=== PATIENT | male | born 1965 | race Hispanic/Latino ===

== ENCOUNTER → 2017-04-27 | Outpatient (CLI) | payer OTHER | LOC: RAH 09:27 | PROVIDERS: ATTEND Internal Medicine | DX: Z01.818 Encounter for other preprocedural examination (principal); M47.895 Other spondylosis, thoracolumbar region | CPT/HCPCS: 71046 ==

== ENCOUNTER → 2018-09-05 | Outpatient (CLI) | payer OTHER ==
--- NOTE | 2018-09-05 11:27 | NUR ---
MBSS COMPLETED. MILD PHARYNGEAL DYSPHAGIA. RECOMMEND REGULAR, THIN LIQUIDS; PILLS WHOLE WITH LIQUIDS; ADD GRAVY TO MEATS, NO DRY TEXTURES, ALTERNATE BITES AND SIPS. PATIENT INFORMATION: Pt IS A 52 YEAR OLD MALE REFERRED FOR AN MBSS SECONDARY TO CHOKING EPISODE. Pt REPORTS THAT HE HAS HAD NECK SURGERY IN THE PAST AND HAD NEVER HAD ISSUES SWALLOWING. Pt STATES THAT IN THE LAST MONTH HE HAS BEEN EXHIBITING CHOKING WHEN EATING MEATS AND SOLIDS. Pt STATES THAT HE FEELS FOOD GET STUCK IN THE BACK OF HIS THROAT. Pt HAS A PAST MEDICAL HISTORY SIGNIFICANT FOR DM, C-SPINE FUSION ANTERIORLY AT C5-C7 (2015) AND POSTERIORLY AT C1-C7 (JULY 2017) WITH INSTRUMENTATION IN PLACE AT THIS TIME. MBSS INTERPRETATION: Pt PRESENTS WITH MILD PHARYNGEAL DYSPHAGIA CAUSED BY NARROWING IN THE POSTERIOR WALL/THICKENING OF TISSUE IN REFERENCE TO C5-C6 (Pt WITH INSTRUMENTATION AT C1-C7 POSTERIORLY AND C5-C7 ANTERIORLY), DECREASED PRESSURE GENERATION WITHIN THE PHARYNX, EVIDENCED BY RESIDUE IN POSTERIOR PHARYNGEAL WALL AND PYRIFORM SINUS AFTER THE SWALLOW (CLEARED WITH LIQUID WASH). NO PENETRATION OR ASPIRATION PRESENT AT THE TIME OF THE MBSS. PLEASE NOTE INCREASE RESIDUE EVIDENT WITH COOKIE TRIAL. TRIALS: 1. TSP PUREED: RESIDUE IN POSTERIOR PHARYNGEAL WALL 2. TSP PUDDING: RESIDUE IN POSTERIOR PHARYNGEAL WALL (CLEARED WITH LIQUID WASH) 3. CUP SIP THIN LIQUIDS: GOOD 4. MIXED TEXTURE: GOOD 5. COOKIE: RESIDUE IN POSTERIOR PHARYNGEAL WALL 6. CUP SIP THIN LIQUIDS: GOOD 7. STRAW SIP THIN LIQUIDS: GOOD RECOMMENDATIONS: 1. REGULAR, THIN LIQUIDS; PILLS WHOLE WITH LIQUIDS. 2. COMPENSATORY STRATEGIES: *SEATED AT 90 *ALTERNATE BITES AND SIPS *ADD GRAVY TO MEATS *SMALL BITES AND SIPS *AVOID DRY FOODS: BREAD, COOKIE, ETC RESULTS AND RECOMMENDATIONS PROVIDED VIA VERBAL AND WRITTEN MODALITY. Pt VERBALIZED UNDERSTANDING AND COMPLIANCE WITH RECOMMENDATIONS. G-CODES SWALLOWING: [id number] Addendum: 09/05/18 at 1143 by SHY HOLLY, SPT ST Amended: Links added.
== END | disposition home or self-care (01) ==
LOC: RAH 10:21
PROVIDERS: ATTEND Internal Medicine
DX: R13.13 Dysphagia, pharyngeal phase (principal); R13.0 Aphagia; R63.3 Feeding difficulties
CPT/HCPCS: 74230; 92611; G8996; G8997; G8998

== ENCOUNTER → 2019-05-28 | Outpatient (CLI) | payer OTHER | END | disposition home or self-care (01) | LOC: RAH 12:13 | PROVIDERS: ATTEND Internal Medicine | DX: I70.203 Unspecified atherosclerosis of native arteries of extremities, bilateral legs (principal) | CPT/HCPCS: 93925 ==

== ENCOUNTER → 2019-12-16 | Outpatient (CLI) | payer OTHER | END | disposition home or self-care (01) | LOC: RAH 10:15 | PROVIDERS: ATTEND Internal Medicine | DX: M47.812 Spondylosis without myelopathy or radiculopathy, cervical region (principal); M25.78 Osteophyte, vertebrae | CPT/HCPCS: 72141 ==

== ENCOUNTER → 2019-12-17 | Outpatient (CLI) | payer OTHER ==
[~2019-12-17] MED LIST: REGADENOSON 0.4 MG/5 ML PF SYG IVP SCH
== END | disposition home or self-care (01) ==
LOC: SHCH 07:55
PROVIDERS: ATTEND Internal Medicine
DX: R07.9 Chest pain, unspecified (principal)
CPT/HCPCS: 78452; 93017; 96374; A9500 ×2; J2785

== ENCOUNTER → 2020-10-05 | Outpatient (CLI) | payer OTHER | END | disposition home or self-care (01) | LOC: RAH 12:00 | PROVIDERS: ATTEND Internal Medicine | DX: I12.9 Hypertensive chronic kidney disease with stage 1 through stage 4 chronic kidney disease, or unspecified chronic kidney disease (principal); Q70.21 Fused toes, right foot; M19.071 Primary osteoarthritis, right ankle and foot | CPT/HCPCS: 71046; 73630 ==